=== PATIENT | male | born 1985 | race African-American/Black ===

== ENCOUNTER 2021-07-03 12:56 | Emergency (ER) | payer OTHER ==
--- OUTSIDE RECORDS SUMMARY | 2021-07-03 13:30 | EXTERNAL MEDICAL SUMMARY RPT | Continuity of Care Document ---
:1985 Author Organization [facility] Address [address] [place] [address] Phone Care Team Providers Name Role Phone ROZPNory [employer]SEMBLER Unavailable Unavailab le Allergies No information. Encounters No information. Medications date description facility 20210702 naproxen All Problems date description facility 20210702 Viral syndrome All 20210702 Viral infection, unspecified All 20210702 Unspecified viral infection All Results No information. Vital Signs date measurement value source 20210702 weight_standard 194 lb 20210702 weight_metric 88 kg 20210702 temperature_standard 97.9 F 20210702 temperature_metric 36.61 C 20210702 respiration_rate 18 /min 20210702 height_standard 68 in 20210702 height_metric 172.72 cm 20210702 heart_rate 60 /min 20210702 BP_systolic 131 mm[Hg] 20210702 BP_diastolic 71 mm[Hg] 20210702 BMI 29.60 kg/m2
[2021-07-03] MEDS ORDERED: IBUPROFEN 800 MG TABLET PO STA (13:33)
--- NOTE | 2021-07-03 13:34 | ED Physician Documentation ---
PD HPI HEADACHE - Stated complaint Stated Complaint: HEADACHE, BODYACHE - Chief complaint Chief Complaint: Neuro - History obtained from History obtained from: Patient - Additional information Additional information: For the last 4 days or so he has had body aches, especially the shoulders and the back associated with bitemporal headache with mild light sensitivity. It is not the worst headache of his life and it was not sudden in onset. There is no associated fevers but he does feel tired. No nausea. No neck stiffness. He went to urgent care yesterday, received something for the headache which did not work. He does not know what it was. That said he does not want any parenteral medications today. He is also driving. No sick contacts. He is immunized against COVID. Review of Systems Constitutional: reports: Myalgias, Fatigue. denies: Fever, Chills Nose: denies: Rhinorrhea / runny nose, Congestion Throat: denies: Sore throat Respiratory: denies: Dyspnea PD PAST MEDICAL HISTORY - Past Surgical History Past Surgical History: No - Present Medications Home Medications: Ambulatory Orders Medication Instructions Recorded Confirmed Cyclobenzaprine [Flexeril] 10 mg PO TID PRN #20 tablet 04/18/21 Ibuprofen [Motrin] 800 mg PO Q8H PRN #30 tablet 04/18/21 Ibuprofen [Motrin] 800 mg PO Q8H PRN #30 tablet 07/03/21 - Allergies Allergies/Adverse Reactions: Allergies Allergy/AdvReac Type Severity Reaction Status Date / Time No Known Drug Allergies Allergy Verified 07/03/21 13:05 - Social History Does the pt have substance abuse?: No PD ED PE NORMAL - Vitals Vital signs reviewed: Yes - General General: Alert and oriented X 3, No acute distress - HEENT HEENT: PERRL, EOMI, Ears normal, Pharynx benign - Neck Neck: Supple, no meningeal sign, No bony TTP - Cardiac Cardiac: RRR, No murmur - Respiratory Respiratory: No respiratory distress, Clear bilaterally - Abdomen Abdomen: Normal bowel sounds, Soft, Non tender - Back Back: No CVA TTP, No spinal TTP - Derm Derm: Normal color, Warm and dry - Extremities Extremities: Other (Mild muscular tenderness of both shoulders with full and maintain range of motion. No rib or spinal tenderness.) - Neuro Neuro: Alert and oriented X 3, curtain cleaner 2-12 intact, No motor deficit, No sensory deficit, Normal speech Eye Opening: Spontaneous Motor: Obeys Commands Verbal: Oriented GCS Score: 15 - Psych Psych: Normal mood, Normal affect Results - Vitals Vitals: Vital Signs - 24 hr 07/03/21 07/03/21 12:59 14:39 Temperature 36.4 C L 36.8 C Heart Rate 65 84 Respiratory 16 16 Rate Blood Pressure 136/66 H 120/67 O2 Saturation 97 100 Oxygen O2 Source Room air - Labs Labs: Laboratory Tests 07/03/21 07/03/21 13:46 13:46 WBC 4.2 L RBC 4.92 Hgb 14.7 Hct 43.3 MCV 88.0 MCH 29.9 MCHC 33.9 RDW 13.6 Plt Count 210 MPV 10.8 Neut # (Auto) 1.9 Lymph # (Auto) 1.9 [place] # (Auto) 0.4 Eos # (Auto) 0.1 Baso # (Auto) 0.0 Absolute Nucleated RBC 0.00 Nucleated RBC % 0.0 Sodium 137 Potassium 4.0 Chloride 101 Carbon Dioxide 28 Anion Gap 8.0 BUN 15 Creatinine 1.2 Estimated GFR (MDRD) 83 L Glucose 90 Calcium 9.5 PD MEDICAL DECISION MAKING - ED course ED course: 36-year-old gentleman with headache, body aches. No neck stiffness or other abnormal physical findings. Feeling better after ibuprofen here. Very mild leukopenia on labs, otherwise unremarkable. Covid test pending on discharge and confirmed phone number prior to discharge. Departure - Departure Disposition: 01 Home, Self Care Clinical Impression: Viral syndrome Condition: Good Record reviewed to determine appropriate education?: Yes Instructions: ED Viral Syndrome Prescriptions: Ibuprofen [Motrin] 800 mg PO Q8H PRN #30 tablet PRN Reason: PAIN &/OR FEVER Comments: As discussed, it sounds like you have a of viral syndrome given the body aches and headache. Lab work is unremarkable. Thankfully it seems like you are better after high-dose ibuprofen here. Return for new or worsening symptoms. There is a Covid test testing and I will call if positive. Will take a few hours. Forms: Activity restrictions Discharge Date/Time: 07/03/21 14:46
[2021-07-03 13:51] LABS: BASOPHILS % (AUTO) 0.2 %; EOSINOPHILS # (AUTO) 0.1 10^3/uL (0.0-0.7); EOSINOPHILS % (AUTO) 1.7 %; HCT - HEMATOCRIT 43.3 % (42.0-52.0); HGB - HEMOGLOBIN 14.7 g/dL (14.0-18.0); LYMPHOCYTES # (AUTO) 1.9 10^3/uL (1.5-3.5); MEAN CORPUSCULAR HEMOGLOBIN 29.9 pg (27.0-31.0); MEAN CORPUSCULAR HGB CONC 33.9 g/dL (32.0-36.0); MEAN PLATELET VOLUME 10.8 fL (7.4-11.4); MONOCYTES # (AUTO) 0.4 10^3/uL (0.0-1.0); MONOCYTES % (AUTO) 8.4 %; NEUTROPHILS # (AUTO) 1.9 10^3/uL (1.5-6.6); NEUTROPHILS % (AUTO) 44.5 %; PLT - PLATELET COUNT 210 10^3/uL (130-450); RED BLOOD COUNT 4.92 10^6/uL (4.70-6.10); RED CELL DISTRIBUTION WIDTH 13.6 % (12.0-15.0); WHITE BLOOD COUNT 4.2 x10^3/uL (4.8-10.8)
[2021-07-03 14:00] LABS: CALCIUM 9.5 mg/dL (8.5-10.3); CREATININE 1.2 mg/dL (0.6-1.2)
[2021-07-03 14:40] VITALS: BP 120/67
[2021-07-03 14:50] LABS: B. PARAPERTUSSIS- RESP PCR PAN NOT DETECTED; B. PERTUSSIS- RESP PCR PANEL NOT DETECTED; C. PNEUMONIAE- RESP PCR PANEL NOT DETECTED; CORONAVIRUS 229E-RESP PCR NOT DETECTED; CORONAVIRUS HKU1-RESP PCR NOT DETECTED; CORONAVIRUS NL63-RESP PCR NOT DETECTED; CORONAVIRUS OC43-RESP PCR NOT DETECTED; HUMAN METAPNEUMOVIRUS NOT DETECTED; INFLUENZA A- RESP PCR PANEL NOT DETECTED; INFLUENZA B - RESP PCR PANEL NOT DETECTED; M. PNEUMONIAE- RESP PCR PANEL NOT DETECTED; PARAINFLUENZA VIRUS 1 NOT DETECTED; PARAINFLUENZA VIRUS 2 NOT DETECTED; PARAINFLUENZA VIRUS 3 NOT DETECTED; PARAINFLUENZA VIRUS 4 NOT DETECTED; RHINOVIRUS/ENTEROVIRUS NOT DETECTED; RSV- RESP PCR PANEL NOT DETECTED; SARS-CoV-2 -RESP PCR PANEL NOT DETECTED
== END 2021-07-03 14:46 | disposition home or self-care (01) ==
LOC: ED 12:56
DX: B34.9 Viral infection, unspecified (principal); Z20.822 Contact with and (suspected) exposure to COVID-19
CPT/HCPCS: 0202U; 36415; 80048; 85025; 99282; 99283; A9270

== ENCOUNTER 2021-09-05 16:27 | Emergency (ER) | payer OTHER ==
--- OUTSIDE RECORDS SUMMARY | 2021-09-05 16:46 | EXTERNAL MEDICAL SUMMARY RPT | Continuity of Care Document ---
:1985 Author Organization [facility] Address [address] [phone] Phone Care Team Providers Name Role Phone MA-C Unavailable Unavailable ENP Unavailable Unavailable Allergies No information. Encounters No information. Medications date description facility 20210702 naproxen All 20210702 naproxen All Problems date description facility 20210903 Viral syndrome All 20210903 Viral infection, unspecified All 20210903 Unspecified viral infection All 20210903 Headache, unspecified All 20210903 Acute headache All 20210702 Viral infection, unspecified All 20210702 Viral syndrome All 20210702 Unspecified viral infection All Results No information. Vital Signs date measurement value source 20210702 weight_standard 194 lb 20210702 weight_metric 88 kg 20210702 temperature_standard 97.9 F 20210702 temperature_metric 36.61 C 20210702 respiration_rate 18 /min 20210702 height_standard 68 in 20210702 height_metric 172.72 cm 20210702 heart_rate 60 /min 20210702 BP_systolic 131 mm[Hg] 20210702 BP_diastolic 71 mm[Hg] 20210702 BMI 29.60 kg/m2 20210903 weight_standard 194.8 lb 20210903 weight_metric 88.36 kg 20210903 temperature_standard 97.7 F 20210903 temperature_metric 36.5 C 20210903 respiration_rate 14 /min 20210903 height_standard 68 in 20210903 height_metric 172.72 cm 20210903 heart_rate 62 /min 20210903 BP_systolic 124 mm[Hg] 20210903 BP_diastolic 77 mm[Hg] 20210903 BMI 29.73 kg/m2
[2021-09-05] MEDS ORDERED: SUMAtriptan 6 MG/0.5 ML VIAL SUBQ STA (18:31)
--- NOTE | 2021-09-05 18:31 | ED Physician Documentation ---
PD HPI HEADACHE - Stated complaint Stated Complaint: HEADACHE - Chief complaint Chief Complaint: Neuro - History obtained from History obtained from: Patient - Additional information Additional information: 3 days of gradual onset frontal headache associated with body aches and severe light sensitivity. No neck stiffness. He has had headaches in the past and was seen here a few months ago for headache associated with what sounded like a viral syndrome. He says this is worse. He tried ibuprofen which was ineffective. No fevers or chills. Review of Systems Constitutional: denies: Fever, Chills Nose: denies: Rhinorrhea / runny nose, Congestion Respiratory: denies: Dyspnea, Cough PD PAST MEDICAL HISTORY - Past Surgical History Past Surgical History: No - Present Medications Home Medications: Ambulatory Orders Medication Instructions Recorded Confirmed Cyclobenzaprine [Flexeril] 10 mg PO TID PRN #20 tablet 04/18/21 Ibuprofen [Motrin] 800 mg PO Q8H PRN #30 tablet 04/18/21 Ibuprofen [Motrin] 800 mg PO Q8H PRN #30 tablet 07/03/21 SUMAtriptan [Imitrex] 25 mg PO BID PRN #10 tablet 09/05/21 - Allergies Allergies/Adverse Reactions: Allergies Allergy/AdvReac Type Severity Reaction Status Date / Time No Known Drug Allergies Allergy Verified 09/05/21 16:39 - Social History Does the pt have substance abuse?: No PD ED PE NORMAL - Vitals Vital signs reviewed: Yes - General General: Alert and oriented X 3 (He appears uncomfortable and light sensitive) - HEENT HEENT: PERRL, EOMI - Neck Neck: Supple, no meningeal sign, No bony TTP - Neuro Neuro: Alert and oriented X 3, 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 He was feeling much better after Subcu Imitrex. Departure - Departure Disposition: 01 Home, Self Care Clinical Impression: Migraine Condition: Good Record reviewed to determine appropriate education?: Yes Instructions: ED Headache Migraine, Imitrex Prescriptions: SUMAtriptan [Imitrex] 25 mg PO BID PRN #10 tablet PRN Reason: Headache Comments: Call your doctor to arrange a follow-up appointment, make the next available appointment. In the interim, return anytime if worse or if new symptoms shanti pearson. Forms: Activity restrictions
--- NOTE | 2021-09-05 20:00 | CT Report ---
PROCEDURE: Normal right shoulder 3 [facility] INDICATIONS: Right TECHNIQUE: Noncontrast 4.5 mm thick angled axial sections acquired from the foramen magnum to the vertex. For r adiation dose reduction, the following was used: automated exposure control, adjustment of mA and/or kV according to patient size. COMPARISON: [facility] no acute cardiopulmonary abnormality. No rib fracture identified. 7 Tammy FINDINGS: Image quality: Excellent. CSF spaces: Basal cisterns are patent. No extra-axial fluid collections. Ventricles are normal in size and shape. Brain: No midline shift. No intracranial masses or hemorrhage. [place]-white matter interface is norm al. Skull and face: Calvarium and visualized facial bones are intact, without suspicious lesions. Sinuses: Visualized sinuses and mastoids are clear. IMPRESSION: No acute intracranial abnormality. Reviewed by: Franklin Seay on 09/05/2021 7:59 PM PDT Approved by: Franklin Seay on 09/05/2021 7:59 PM PDT Station ID: [id number]
[2021-09-05 20:25] VITALS: BP 108/62
== END 2021-09-05 20:28 | disposition home or self-care (01) ==
LOC: ED 16:27
DX: G43.909 Migraine, unspecified, not intractable, without status migrainosus (principal)
CPT/HCPCS: 96372; 99282; 99284

== ENCOUNTER 2022-08-23 08:24 | Outpatient (CLI) | payer OTHER ==
--- NOTE | 2022-08-23 10:09 | MRI Report ---
PROCEDURE: BRAIN WO INDICATIONS: MIGRAINE TECHNIQUE: Noncontrast axial T1 spin echo, axial T2 fast spin echo, sagittal and axial FLAIR, coronal T2 fast sp in echo, axial gradient echo, axial diffusion and ADC through the brain. COMPARISON: Head CT dated 09/05/2021 FINDINGS: Image quality: Excellent. CSF Spaces: Basal cisterns are patent. No extra-axial fluid collections. Ventricles are normal in size and shape. Brain: No intracranial masses or hemorrhage. [place]/white matter interface is normal. Brainstem appea rs normal. Diffusion-weighted images demonstrate no acute ischemic insult. No chronic ischemic insu lts. Normal intravascular flow voids are present. Skull and face: Calvarium has normal marrow signal. Orbits appear normal. Sinuses: Sinuses and mastoids are clear. IMPRESSION: 1. No explanation for migraine. 2. No acute process. No recent infarct. Reviewed by: Love Hedrick MD on 08/23/2022 10:08 AM PDT Approved by: Love Hedrick MD on 08/23/2022 10:08 AM PDT Station ID: [id number]
== END 2022-08-23 08:25 | disposition home or self-care (01) ==
LOC: DI 08:24
PROVIDERS: ATTEND Student in an Organized Health Care Education/Training Program
DX: G43.909 Migraine, unspecified, not intractable, without status migrainosus (principal); R42 Dizziness and giddiness

== ENCOUNTER 2023-02-13 05:01 | Emergency (ER) | payer OTHER ==
[2023-02-13] MEDS ORDERED: diphenhydrAMINE INJ 50 MG/ML VIAL IVP STA (05:40)
[2023-02-13] MEDS ORDERED: KETOROLAC 15 MG/ML VIAL IVP STA (05:40)
[2023-02-13] MEDS ORDERED: METOCLOPRAMIDE 10 MG/2 ML VIAL IVP STA (05:40)
[2023-02-13] MEDS ORDERED: SODIUM CHLORIDE 0.9% 1,000 ML IV STA (05:40)
--- NOTE | 2023-02-13 06:00 | ED Physician Documentation ---
History of Present Illness - Stated complaint Stated Complaint: HEAD PX - Chief complaint Chief Complaint: Neuro - History obtained from History obtained from: Patient - Additonal information Additional information: 37yM with pmh migraine p/w diffuse headache gradual onset since yesterday afternoon with associated photophobia and decreased appetite. denies fever, n/v myalgia or fnd PD PAST MEDICAL HISTORY - Past Medical History Past Medical History: Yes Neuro: Migraines - Past Surgical History Past Surgical History: No - Present Medications Home Medications: Ambulatory Orders Medication Instructions Recorded Confirmed SUMAtriptan [Imitrex] 25 mg PO ONCE PRN #15 tablet 02/13/23 - Allergies Allergies/Adverse Reactions: Allergies Allergy/AdvReac Type Severity Reaction Status Date / Time No Known Drug Allergies Allergy Verified 02/13/23 05:09 - Social History Does the pt smoke?: No Smoking Status: Never smoker Does the pt drink ETOH?: Yes ETOH Use: Wine, Beer, Liquor Does the pt have substance abuse?: No - Immunizations Immunizations are current?: Yes - POLST Patient has POLST: No PD ED PE NORMAL - Vitals Vital signs reviewed: Yes - General General: Alert and oriented X 3, No acute distress, Well developed/nourished - HEENT HEENT: Atraumatic, PERRL, EOMI, Moist mucous membranes, Pharynx benign - Neck Neck: Supple, no meningeal sign - Cardiac Cardiac: RRR - Respiratory Respiratory: No respiratory distress, Clear bilaterally - Derm Derm: Normal color, Warm and dry - Neuro Neuro: Alert and oriented X 3, move coordinator 2-12 intact, No motor deficit, No sensory deficit, Normal speech Results - Vitals Vitals: Vital Signs - 24 hr 02/13/23 02/13/23 05:06 06:02 Temperature 36.5 C Heart Rate 53 L 68 Respiratory 18 18 Rate Blood Pressure 135/85 H 134/91 H O2 Saturation 100 98 Oxygen O2 Source Room air PD Medical Decision Making - ED course ED course: 37yM presents to the ED with diffuse generalized headache gradual onset since yesterday, improving s/p IVF, toradol, reglan/benadryl. plan to f/u outpatient with pcp for referral to neurology. return precautions given. Departure - Departure Disposition: 01 Home, Self Care Clinical Impression: Migraine headache Condition: Stable Instructions: ED Headache Migraine Follow-Up: Madai Galvin DO [Physician No Access] - Prescriptions: SUMAtriptan [Imitrex] 25 mg PO ONCE PRN #15 tablet PRN Reason: Headache Comments: You were seen in the emergency department for headache. Please follow-up with your primary care provider and return to the emergency department if you have any new or worsening symptoms or other concerns. Forms: PCP List
[2023-02-13 06:07] VITALS: O2SAT 98
[2023-02-13 07:52] VITALS: BP 97/63
== END 2023-02-13 07:46 | disposition home or self-care (01) ==
LOC: ED 05:01
DX: G43.909 Migraine, unspecified, not intractable, without status migrainosus (principal)
CPT/HCPCS: 36415; 96374; 99283; J1200; J2765

== ENCOUNTER 2023-07-11 11:48 | Emergency (ER) | payer OTHER ==
[2023-07-11 12:21] VITALS: O2SAT 100
[2023-07-11 12:45] LABS: BASOPHILS % (AUTO) 0.3 %; EOSINOPHILS % (AUTO) 1.1 %; HCT - HEMATOCRIT 46.8 % (42.0-52.0); HGB - HEMOGLOBIN 15.7 g/dL (14.0-18.0); LYMPHOCYTES # (AUTO) 1.9 10^3/uL (1.5-3.5); LYMPHOCYTES % (AUTO) 50.1 %; MEAN CORPUSCULAR HEMOGLOBIN 29.2 pg (27.0-31.0); MEAN CORPUSCULAR HGB CONC 33.5 g/dL (32.0-36.0); MEAN CORPUSCULAR VOLUME 87.2 fL (80.0-94.0); MEAN PLATELET VOLUME 11.2 fL (7.4-11.4); MONOCYTES # (AUTO) 0.3 10^3/uL (0.0-1.0); MONOCYTES % (AUTO) 7.3 %; NEUTROPHILS # (AUTO) 1.5 10^3/uL (1.5-6.6); NEUTROPHILS % (AUTO) 40.9 %; PLT - PLATELET COUNT 261 10^3/uL (130-450); RED BLOOD COUNT 5.37 10^6/uL (4.70-6.10); RED CELL DISTRIBUTION WIDTH 13.6 % (12.0-15.0); WHITE BLOOD COUNT 3.7 x10^3/uL (4.8-10.8)
--- NOTE | 2023-07-11 12:51 | XRAY Report ---
PROCEDURE: Chest 1V INDICATIONS: Chest pain TECHNIQUE: One view of the chest was acquired. COMPARISON: None. FINDINGS: Surgical changes and devices: None. Lungs and pleura: No pleural effusions or pneumothorax. Lungs are clear. Mediastinum: Mediastinal contours appear normal. Heart size is normal. Bones and chest wall: Expansile bony mass of the right clavicle measuring 6.9 x 3.7 cm. IMPRESSION: No acute cardiopulmonary process. Expansile bony mass of the right clavicle without periosteal, measuring 6.9 x 3.7 cm. Recommend outpa tient MRI with contrast for further characterization. Reviewed by: Juan Miguel Valle MD on 07/11/2023 12:49 PM PDT Approved by: Juan Miguel Valle MD on 07/11/2023 12:49 PM PDT Station ID: [id number]
[2023-07-11 12:59] LABS: ALBUMIN 4.4 g/dL (3.2-5.5); ALBUMIN/GLOBULIN RATIO 1.4 (1.0-2.2); BILIRUBIN,TOTAL 0.8 mg/dL (0.2-1.0); CREATININE 1.1 mg/dL (0.6-1.3); POTASSIUM 4.4 mmol/L (3.5-4.5); TOTAL PROTEIN 7.5 g/dL (6.4-8.9)
[2023-07-11 13:07] LABS: TROPONIN I HIGH SENSITIVITY 7.1 ng/L (2.3-19.7)
[2023-07-11 13:13] VITALS: BP 153/95
--- NOTE | 2023-07-11 13:20 | ED Physician Documentation ---
PD HPI CHEST PAIN - Stated complaint Stated Complaint: SOA,CHEST PX,COUGH - Chief complaint Chief Complaint: Resp - History obtained from History obtained from: Patient - Additional information Additional information: 38-year-old gentleman who is otherwise healthy except for a known right clavicular lesion that he has had an MRI of, he is unclear on the results but he is being referred to oncology for further evaluation and treatment. No history of heart or lung disease. Today while sweeping he developed a cough and then had substernal nonradiating chest pain for a couple of hours. It is gone now. Denies production of the cough. He feels fine now. PD PAST MEDICAL HISTORY - Past Medical History Past Medical History: Yes Neuro: Migraines - Past Surgical History Past Surgical History: No - Present Medications Home Medications: Ambulatory Orders Medication Instructions Recorded Confirmed SUMAtriptan [Imitrex] 25 mg PO ONCE PRN #15 tablet 02/13/23 07/11/23 - Allergies Allergies/Adverse Reactions: Allergies Allergy/AdvReac Type Severity Reaction Status Date / Time No Known Drug Allergies Allergy Verified 07/11/23 12:21 - Social History Does the pt smoke?: No Smoking Status: Never smoker Does the pt drink ETOH?: Yes Does the pt have substance abuse?: No - Immunizations Immunizations are current?: Yes - POLST Patient has POLST: No PD ED PE NORMAL - Vitals Vital signs reviewed: Yes - General General: Alert and oriented X 3, No acute distress - Cardiac Cardiac: RRR, No murmur - Respiratory Respiratory: No respiratory distress, Clear bilaterally - Abdomen Abdomen: Non tender - Neuro Neuro: Alert and oriented X 3 Results - Vitals Vitals: Vital Signs - 24 hr 07/11/23 07/11/23 12:15 13:10 Temperature 36.7 C Heart Rate 59 L 58 L Respiratory 16 16 Rate Blood Pressure 141/79 H 153/95 H O2 Saturation 100 100 Oxygen O2 Source Room air - EKG (time done) 1227 EKG releavant findings:: EKG personally interpreted by author of this note. Relevant findings are: Rate: Rate (enter#) (59) Rhythm: NSR [place]: Normal Intervals: Normal PA QRS: Normal Ischemia: ST elevation c/w repol - Labs Labs: Laboratory Tests 07/11/23 07/11/23 12:40 12:40 WBC 3.7 L RBC 5.37 Hgb 15.7 Hct 46.8 MCV 87.2 MCH 29.2 MCHC 33.5 RDW 13.6 Plt Count 261 MPV 11.2 Neut # (Auto) 1.5 Lymph # (Auto) 1.9 [place] # (Auto) 0.3 Eos # (Auto) 0.0 Baso # (Auto) 0.0 Absolute Nucleated RBC 0.00 Nucleated RBC % 0.0 Sodium 141 Potassium 4.4 Chloride 104 Carbon Dioxide 32 Anion Gap 5.0 L BUN 14 Creatinine 1.1 Estimated GFR (MDRD) 90 Glucose 66 L Calcium 10.0 Total Bilirubin 0.8 AST 24 ALT 17 Alkaline Phosphatase 58 Troponin I High Sens 7.1 Total Protein 7.5 Albumin 4.4 Globulin 3.1 Albumin/Globulin Ratio 1.4 Lipase 49 - Rads (name of study) 1v cxr Relevant Findings:: Final report received, EMP independent interpretation of test PD Medical Decision Making - ED course ED course: He developed a cough while sweeping earlier today and wonders if he might be allergic to dust, after the cough he developed some substernal nonradiating chest pain. Workup in the emergency department demonstrates a nonischemic EKG, clear chest x-ray with the exception of the known clavicular lesion which she already has appropriate follow-up for, CBC showing mild nonspecific low white count and normal CMP and troponin. He is asymptomatic now and declined further needs although did want a note to allow him to wear a mask while sleeping at work. Departure - Departure Disposition: 01 Home, Self Care Clinical Impression: Chest pain Condition: Good Record reviewed to determine appropriate education?: Yes Instructions: ED Chest Pain NonCardiac Comments: As discussed, I suspect your chest pain is related to the cough which may be due to allergens you are exposed to while sweeping. Reasonable to wear a mask while sweeping. Otherwise I am glad to know you have appropriate follow-up for the known clavicular lesion on the right. Forms: PCP List, Activity restrictions
== END 2023-07-11 13:23 | disposition home or self-care (01) ==
LOC: ED 11:48
DX: R07.9 Chest pain, unspecified (principal); R05.9 Cough, unspecified
CPT/HCPCS: 36415; 80053; 83690; 84484; 85025; 93005; 99283; 99284

== ENCOUNTER 2023-07-28 13:11 | Outpatient (CLI) | payer OTHER | END 2023-07-28 23:59 | disposition short-term general hospital (02) | LOC: EMS 13:11 | DX: R07.89 Other chest pain (principal) | CPT/HCPCS: A0425; A0427 ==